=== PATIENT | female | born 1985 | race Caucasian/White ===

== ENCOUNTER 2021-11-13 13:52 | Emergency (ER) | payer OTHER ==
[2021-11-13 15:21] LABS: BILIRUBIN NEGATIVE (NEGATIVE); BLOOD NEGATIVE Ery/uL (NEGATIVE); CLARITY CLEAR (CLEAR); COLOR YELLOW (YELLOW); GLUCOSE (U) NORMAL (NORMAL); LEUKOCYTES NEGATIVE Leu/uL (NEGATIVE); NITRITE NEGATIVE (NEGATIVE); PROTEIN NEGATIVE (NEGATIVE); SPECIFIC GRAVITY 1.025 (1.001-1.030); UROBILINOGEN 0.2 mg/dL (0.2-1.0)
[2021-11-13 16:24] LABS: BASOPHIL 0.5 % (0-2); EOSINOPHIL 0.2 % (0-5); HCT 45.4 % (37.0-47.0); HGB 15.3 g/dl (12.5-16.0); LYMPHOCYTE 16.9 % (15-48); MCH 30.4 pg (25.0-31.0); MCHC 33.7 g/dL (32.0-36.0); MCV 90.1 fL (78.0-100.0); MONOCYTE 4.1 % (0-12); MPV 9.5 fL (6.0-9.5); NRBC 0; PLT 244 K/uL (150-400); RBC 5.04 M/uL (4.20-5.40); RDW 12.1 % (11.5-14.0); WBC 9.7 K/uL (4.0-10.5)
[2021-11-13 16:46] LABS: ALBUMIN 4.5 g/dL (3.4-5.0); BILIRUBIN - TOTAL 0.6 mg/dL (0.2-1.0); CREATININE 0.83 mg/dL (0.51-0.95); GLOBULIN (CALCULATION) 3.9 g/dL; POTASSIUM 3.7 mmol/L (3.5-5.1); TOTAL PROTEIN 8.4 g/dL (6.4-8.2)
[2021-11-13] MEDS ORDERED: ONDANSETRON HCL4 MG PO (19:07)
== END 2021-11-13 19:25 | disposition home or self-care (01) ==
LOC: FER 13:52
PROVIDERS: Emergency Medicine; Nurse Practitioner Family
DX: R10.84 Generalized abdominal pain (principal); R11.0 Nausea; F17.290 Nicotine dependence, other tobacco product, uncomplicated
CPT/HCPCS: 36415; 80053; 81003; 85025; J1100; J1885; J2405; J7030; Q9967

== ENCOUNTER 2022-01-02 18:31 | Emergency (ER) | payer OTHER ==
[~2022-01-02 18:31] MED LIST: ONDANSETRON HCL4 MG PO
[2022-01-02 20:00] LABS: BASOPHIL 0.4 % (0-2); EOSINOPHIL 0.1 % (0-5); HCT 44.8 % (37.0-47.0); HGB 15.4 g/dl (12.5-16.0); MCH 30.6 pg (25.0-31.0); MCHC 34.4 g/dL (32.0-36.0); MCV 88.9 fL (78.0-100.0); MONOCYTE 4.7 % (0-12); MPV 9.7 fL (6.0-9.5); NEUTROPHIL 74.5 % (41-80); NRBC 0; PLT 239 K/uL (150-400); RBC 5.04 M/uL (4.20-5.40); RDW 11.8 % (11.5-14.0); WBC 10.1 K/uL (4.0-10.5)
[2022-01-02 20:09] LABS: BILIRUBIN NEGATIVE (NEGATIVE); BLOOD NEGATIVE Ery/uL (NEGATIVE); CLARITY CLEAR (CLEAR); COLOR YELLOW (YELLOW); GLUCOSE (U) NORMAL (NORMAL); LEUKOCYTES NEGATIVE Leu/uL (NEGATIVE); NITRITE NEGATIVE (NEGATIVE); PROTEIN NEGATIVE (NEGATIVE); UROBILINOGEN 0.2 mg/dL (0.2-1.0)
[2022-01-02 20:26] LABS: BUN/CREAT RATIO (CALC) 12.8 RATIO; CREATININE 0.78 mg/dL (0.51-0.95); FT4 (FREE T4) 0.8 ng/dL (0.76-1.46); POTASSIUM 3.9 mmol/L (3.5-5.1)
[2022-01-02] MEDS ORDERED: PERCOCET 5-3251 EACH PO (21:50)
== END 2022-01-02 23:34 | disposition home or self-care (01) ==
LOC: FER 18:31
PROVIDERS: Nurse Practitioner Family
DX: N83.202 Unspecified ovarian cyst, left side (principal)
CPT/HCPCS: 36415; 80048; 81003; 84439; 84443; 85025; 99284